=== PATIENT | male | born 1955 ===

== ENCOUNTER 2021-08-16 | Emergency (ER) | payer OTHER, MEDICARE ==
--- OUTSIDE RECORDS SUMMARY | 2021-08-16 00:04 | XMS REPORT | Continuity of Care Document ---
:1955 Author Organization [facility] t Address [address] [place] [address] Dr. Corona. [address] [place] [id number] Care Team Providers Name Role Phone SAVI Attending Clinician Unavailable Problems This patient has no known problems. Allergies, Adverse Reactions, Alerts This patient has no known allergies or adverse reactions. Medications This patient has no known medications. Procedures This patient has no known procedures. Encounters Start End Encounter Admission Attending Care Care Encounter Source Date/Time Date/Time Type Type Clinicians Facility Department ID 2021-04-16 2021-04-16 Outpatient [facility] [id number] [address] [place] 00:00:00 00:00:00 [facility] [address] 2021-04-16 2021-04-16 Outpatient [facility] [id number] [address] [place] 00:00:00 00:00:00 [facility] [address] Results This patient has no known results.
[2021-08-16] MEDS ORDERED: dexAMETHasone 10 MG/ML VIAL ONE ×2 (00:51→01:39)
[2021-08-16 01:30] LABS: Absolute Lymphocytes (CBC) 1.6 K/uL (0.7-4.9); Basophils % 0.3 % (0-1.3); Hematocrit 45.4 % (39.6-49.0); Lymphocytes % 9.4 % (15.3-44.8); MPV 9.5 fL (7.6-11.3)
[2021-08-16 01:37] LABS: Protime INR 0.88
[2021-08-16 01:44] LABS: Potassium 3.8 mmol/L (3.5-5.1)
[2021-08-16] MEDS ORDERED: LORazepam 2 MG/ML VIAL ONE (01:54)
[2021-08-16] MEDS ORDERED: LIDOCAINE 1% MPF 5 ML VIAL ONE (03:47)
[2021-08-16] MEDS ORDERED: ONDANSETRON 4 MG/2 ML VIAL ONE (03:48)
[2021-08-16] MEDS ORDERED: MORPHINE 4 MG/ML SYR ONE (03:48)
[2021-08-16] MEDS ORDERED: CLINDAMYCIN 900MG/D5W 900 MG/50 ML IVPB IV ONE (04:37)
--- NOTE | 2021-08-16 04:48 | ER ---
Nurse's Notes [facility] Name: Albaro Farris Age: 66 yrs Sex: Male : 1955 Arrival Date: 08/16/2021 Time: 00:08 Bed 20 Private MD: Diagnosis: Peritonsillar abscess Presentation: 08/16 00:26 Chief complaint: Patient states: Positive for Strep by Urgent Care on 08/14/21; Reports lp1 feeling like neck swelling has worsened since; Taking steroid pack without relief, Cefdinir. Coronavirus screen: The client reports previous COVID testing was negative. Date of collection: August 14, 2021. Ebola Screen: No symptoms or risks identified at this time. Risk Assessment: Do you want to hurt yourself or someone else? Patient reports no desire to harm self or others. Onset of symptoms was August 16, 2021. 00:26 Method Of Arrival: Ambulatory lp1 00:26 Acuity: ISABELL 3 lp1 00:30 Initial Sepsis Screen: Does the patient meet any 2 criteria? No. Patient's initial lp1 sepsis screen is negative. Does the patient have a suspected source of infection? No. Patient's initial sepsis screen is negative. Triage Assessment: 00:30 General: Appears uncomfortable, Behavior is calm, cooperative. Pain: Complains of pain mr2 in left aspect of posterior pharynx Pain does not radiate. Pain currently is 4 out of 10 on a pain scale. Quality of pain is described as stabbing. Historical: - Allergies: 00:28 No Known Allergies; lp1 - Home Meds: 00:28 levothyroxine oral [Active]; atorvastatin 20 mg oral tab 1 tab once daily [Active]; lp1 - PMHx: 00:28 Hypothyroidism; lp1 - PSHx: 00:28 None; lp1 - Immunization history:: Adult Immunizations up to date. - Social history:: Smoking status: Patient denies any tobacco usage or history of. - Family history:: not pertinent. - Hospitalizations: : No recent hospitalization is reported. Screenin:26 Abuse screen: Denies threats or abuse. Denies injuries from another. Nutritional lp1 screening: No deficits noted. Tuberculosis screening: No symptoms or risk factors identified. Fall Risk None identified. Assessment: 01:00 General: Appears uncomfortable, Behavior is calm, cooperative. EENT: Reports difficulty mr2 swallowing pain in left aspect of posterior pharynx when swallowing. Vital Signs: 00:30 BP 131 / 90; Pulse 81; Resp 18; Temp 97.6; Pulse Ox 99% on R/A; Weight 95.71 kg; Height lp1 6 ft. 0 in. (182.88 cm); Pain 10/10; 04:00 BP 157 / 86; Pulse 72; Resp 18; Temp 98.4; Pulse Ox 98% on R/A; mr2 00:30 Body Mass Index 28.62 (95.71 kg, 182.88 cm) lp1 ED Course: 00:08 Patient arrived in ED. ja2 00:25 Arm band placed on left wrist. lp1 00:28 Triage completed. lp1 00:30 Patient has correct armband on for positive identification. lp1 00:31 Sudheer Cruz, ROBBIE is Primary Nurse. mr2 00:32 Richard Ferrari MD is Attending Physician. rn 00:45 CBC with Diff Sent. mr2 00:45 Ptt, Activated Sent. mr2 00:45 Protime (+inr) Sent. mr2 00:45 Basic Metabolic Panel Sent. mr2 01:00 Inserted saline lock: 18 gauge in right antecubital area, using aseptic technique. mr2 01:40 Basic Metabolic Panel Sent. mr2 02:00 No provider procedures requiring assistance completed. mr2 02:23 CT Soft Tissue Neck W/contr In Process Unspecified. EDMS 04:47 Dania Moreno MD is Referral Physician. rn Administered Medications: 01:10 Drug: Decadron - Dexamethasone 10 mg Route: IVP; Site: right antecubital; mr2 03:52 Drug: morphine 4 mg Route: IVP; Site: right antecubital; mr2 03:52 Drug: Zofran (Ondansetron) 4 mg Route: IVP; Site: right antecubital; mr2 04:15 Drug: Lidocaine (1 %) 1 vials {Note: admin by Dr. Ferrari.} Volume: 5 ml; Route: mr2 Infiltration; 04:45 Drug: Clindamycin 900 mg Route: IVPB; Infused Over: 30 mins; Site: right antecubital; mr2 Outcome: 04:47 Discharge ordered by . rn 06:29 Patient left the ED. ss Signatures: Dispatcher [employer] REYMUNDOMS Richard Ferrari MD MD rn Bryanna Abbasi RN RN ss Niki Crockett RN RN lp1 Mariely Danielle Mike, RN RN mr2
--- NOTE | 2021-08-16 04:48 | EDPHYS ---
Physician Documentation [facility] Name: Albaro Farris Age: 66 yrs Sex: Male : 1955 Arrival Date: 08/16/2021 Time: 00:08 Bed 20 Private MD: ED Physician Richard Ferrari HPI: 08/16 01:42 This 66 yrs old Male presents to ER via Ambulatory with complaints of STREP+ throat rn pain and swelling. 01:42 The patient or guardian complains of pain, swelling. The symptoms are located Left rn posterior pharynx. Onset: The symptoms/episode began/occurred yesterday. Context: The neck injury/problem resulted from from unknown cause. Associated signs and symptoms: Pertinent negatives: fever. The pain does not radiate. Modifying factors: The symptoms are alleviated by nothing. the symptoms are aggravated by movement, pressure. Severity of symptoms: At their worst the symptoms were. The patient has not experienced similar symptoms in the past. The patient has not recently seen a physician. Patient reports has strep infection, has been taking antibiotics, yesterday noticed increased swelling and pain and today got worse. Reports pain with swallowing and moving neck. No injury. No fever. Reports voice sounds funny.. Historical: - Allergies: 00:28 No Known Allergies; lp1 - Home Meds: 00:28 levothyroxine oral [Active]; atorvastatin 20 mg oral tab 1 tab once daily [Active]; lp1 - PMHx: 00:28 Hypothyroidism; lp1 - PSHx: 00:28 None; lp1 - Immunization history:: Adult Immunizations up to date. - Social history:: Smoking status: Patient denies any tobacco usage or history of. - Family history:: not pertinent. - Hospitalizations: : No recent hospitalization is reported. ROS: 01:42 Constitutional: Negative for fever, chills, and weight loss, Eyes: Negative for injury, rn pain, redness, and discharge, ENT: Positive for left-sided throat pain and swelling Neck: Positive for left-sided neck pain Cardiovascular: Negative for chest pain, palpitations, and edema, Respiratory: Negative for shortness of breath, cough, wheezing, and pleuritic chest pain, Abdomen/GI: Negative for abdominal pain, nausea, vomiting, diarrhea, and constipation, MS/Extremity: Negative for injury and deformity, Skin: Negative for injury, rash, and discoloration, Neuro: Negative for headache, weakness, numbness, tingling, and seizure. Exam: 01:42 Constitutional: This is a well developed, well nourished patient who is awake, alert, rn and in no acute distress. Head/Face: Normocephalic, atraumatic. ENT: Mild left posterior pharyngeal swelling and erythema with tenderness, does have right-sided deviation of the uvula. Tolerating secretions. No stridor. Neck: Trachea midline, positive cervical lymphadenopathy, no crepitus Cardiovascular: Regular rate and rhythm. No pulse deficits. Respiratory: No increased work of breathing, no retractions or nasal flaring. Vital Signs: 00:30 BP 131 / 90; Pulse 81; Resp 18; Temp 97.6; Pulse Ox 99% on R/A; Weight 95.71 kg; Height lp1 6 ft. 0 in. (182.88 cm); Pain 10/10; 04:00 BP 157 / 86; Pulse 72; Resp 18; Temp 98.4; Pulse Ox 98% on R/A; mr2 00:30 Body Mass Index 28.62 (95.71 kg, 182.88 cm) lp1 Procedures: 04:46 I \T\ D: Incision and drainage was performed for an abscess of the left peritonsillar rn area. Anesthetized with 1 ml's 1% Lidocaine. Incised with 20g spinal needle. Drained moderate amount purulent fluid. the patient tolerated the procedure well. 04:46 I \T\ D: Significant and immediate improvement following aspiration, muffled voice has rn resolved and patient states can swallow and less pain.. MDM: 00:32 Patient medically screened. rn 04:47 Differential diagnosis: peritonsillar abscess. Data reviewed: vital signs, nurses rn notes, lab test result(s), radiologic studies, CT scan, and as a result, I will discharge patient. Counseling: I had a detailed discussion with the patient and/or guardian regarding: the historical points, exam findings, and any diagnostic results supporting the discharge/admit diagnosis, lab results, radiology results, the need for outpatient follow up, to return to the emergency department if symptoms worsen or persist or if there are any questions or concerns that arise at home. Response to treatment: the patient's symptoms have markedly improved after treatment, and as a result, I will discharge patient. Special discussion: I discussed with the patient/guardian in detail that at this point there is no indication for admission to the hospital. It is understood, however, that if the symptoms persist or worsen the patient needs to return immediately for re-evaluation. Based on the history and exam findings, there is no indication for further emergent testing or inpatient evaluation. I discussed with the patient/guardian the need to see the ENT specialist for further evaluation of the symptoms. 08/16 00:30 Order name: CBC with Diff; Complete Time: 02:02 rn 08/16 00:30 Order name: Basic Metabolic Panel; Complete Time: 02: rn 08/16 00:30 Order name: CT Soft Tissue Neck W/contr rn 08/16 00:30 Order name: Protime (+inr); Complete Time: 02: rn 08/16 00:30 Order name: Ptt, Activated; Complete Time: 02:12 rn 08/16 00:30 Order name: IV Start; Complete Time: 00:45 rn 08/16 03:44 Order name: Surgical Consent: consent for peritonsillar abscess needle aspiration; rn Complete Time: 04:46 Administered Medications: 01:10 Drug: Decadron - Dexamethasone 10 mg Route: IVP; Site: right antecubital; mr2 03:52 Drug: morphine 4 mg Route: IVP; Site: right antecubital; mr2 03:52 Drug: Zofran (Ondansetron) 4 mg Route: IVP; Site: right antecubital; mr2 04:15 Drug: Lidocaine (1 %) 1 vials {Note: admin by Dr. Ferrari.} Volume: 5 ml; Route: mr2 Infiltration; 04:45 Drug: Clindamycin 900 mg Route: IVPB; Infused Over: 30 mins; Site: right antecubital; mr2 Disposition Summary: 08/16/21 04:47 Discharge Ordered Location: Home rn Problem: new rn Symptoms: have improved rn Condition: Stable rn Diagnosis - Peritonsillar abscess rn Followup: rn - With: Dania Moreno MD - When: 2 - 3 days - Reason: Recheck today's complaints, Re-evaluation by your physician Discharge Instructions: - Discharge Summary Sheet rn - Peritonsillar Abscess rn Forms: - Medication Reconciliation Form rn - Thank You Letter rn - Antibiotic biomedical engineering internship - Prescription Opioid Use rn Prescriptions: - Clindamycin HCl 300 mg Oral Capsule - take 1 capsule by ORAL route every 6 hours for 10 days; 40 capsule; Refills: 0, rn Product Selection Permitted - Tramadol 50 mg Oral Tablet - take 1 tablet by ORAL route every 8 hours as needed; 12 tablet; Refills: 0, rn Product Selection Permitted Signatures: Dispatcher [employer] Richard Escudero MD MD rn Pena, Laura RN RN lp1 Zia Gutierres FNP-C EMBOSSING CLERK-[facility]1 Sudheer Cruz RN RN mr2
[2021-08-16 06:41] VITALS: BP 157/86; TEMP 98.4; O2SAT 98
--- NOTE | 2021-08-16 23:15 | RAD REPORT ---
EXAM DESCRIPTION: CT - Soft Tissue Neck W/Contr - 08/16/2021 4:20 am COMPARISON: None. CLINICAL HISTORY: [facility] MA[facility] eval for peritonsillar abscess TECHNIQUE: Axial CT images are obtained from the skull base through the thoracic inlet with intraven ous contrast. Multiplanar reformats were performed. Automated exposure control was utilized on the ex am as a dose lowering technique. FINDINGS: Larynx, supraglottic, glottic, infraglottic airways: The larynx and the entire cervical ai rway are unremarkable. Nasopharynx, oropharynx, parotid glands, submandibular glands and tongue: The soft tissues of the minna opharynx are normal. The parotid and both submandibular glands are normal. Inherent muscles of the to ngue are normal. There is enlargement of the left palatine tonsil with a peripherally enhancing fluid collection within measuring 2.0 x 1.3 x 1.9 cm. Lymph nodes: Reactive left cervical lymph nodes are present. Thyroid: 7 mm right thyroid nodule, not requiring follow-up. Vascular: Unremarkable. Cervical esophagus: Normal. Musculoskeletal: Cervical spondylosis. Visualized upper thorax and mediastinum: The visualized portions of the lung apices and upper mediast inum are normal. Visualized structures of the skull base: Visualized portions of the skull base, middle ear, and paran petey sinuses are normal. Small left mastoid effusion. NECK IMPRESSION: 2.0 cm left-sided intratonsillar abscess. Electronically signed by: Donaldo Montaño MD 08/16/2021 3:23 AM HAND ASSEMBLER FOR [employer] Due to temporary technical issues with the PACS/Fluency reporting system, reports are being signed by the in house radiologists without review as a courtesy to insure prompt reporting. The interpreting radiologist is fully responsible for the content of the report.
== END 2021-08-16 06:29 | disposition home or self-care (01) ==
LOC: ER
PROC: 0C9PXZZ Drainage of Tonsils, External Approach (ICD-10-PCS; principal; 2021-08-16)
DX: J36 Peritonsillar abscess (principal); E03.9 Hypothyroidism, unspecified
CPT/HCPCS: 85025; 80048; 36415; 85610; 85730; 70491; 96375; 96374; 99284; 42700; Q9967; J1100; J2405